=== PATIENT | female | born 1940 | race Caucasian/White ===

== ENCOUNTER 2023-02-15 11:08 | Inpatient (IN) ==
[2023-02-15] MEDS ORDERED: Morphine 2 MG/ML SYRINGE IV PRN (11:56)
[2023-02-15] MEDS ORDERED: Ondansetron 4 mg VIAL 2 MG/ML 2 ml VIAL IV PRN (11:57)
[2023-02-15] MEDS ORDERED: Zosyn per Pharmacy NOTE FOLLOW UP SCH (12:00)
[2023-02-15] MEDS ORDERED: ZOSYN 3.375 GM x ONE DOSE over 30 miuntes IV (12:00)
[2023-02-15] MEDS ORDERED: NS 0.9% 1000 ml BAG 1,000 ML IV SCH (12:00)
[2023-02-15 12:28] LABS: Hematocrit 33.6 % (35-45); Hemoglobin 11.8 g/dL (11.5-14.3); Mean Corpuscular Hemoglobin 34.3 pg (27-33); Mean Corpuscular Hgb Conc 35.2 g/dL (31-36); Mean Corpuscular Volume 97.5 fL (80-97); Platelet Count 246 10^3/uL (150-450); Red Blood Count 3.45 10^6/uL (3.63-4.92); Red Cell Distribution Width 13.6 % (12-17); White Blood Count 6.5 10^3/uL (3.8-11.8)
[2023-02-15 12:34] LABS: INR 1.34 (0.83-1.13)
[2023-02-15 13:06] LABS: Rapid COVID-19 Molecular Undetected (Undetected)
[2023-02-15] MEDS: Acetaminophen IV 1 GM/100ML 1,000 MG/100 ML BAG IV PRN (14:08)
[2023-02-15 14:20] LABS: Creatinine, Serum 0.8 mg/dL (0.51-0.95); Potassium 3.6 mmol/L (3.5-5.0); eGFR CKD-EPI 74.4 (>60)
[2023-02-15] MEDS: NS 0.9% 1000 ml BAG 1,000 ML IV SCH ×2 (15:01→23:56)
[2023-02-15 15:28] LABS: Albumin 3.7 g/dL (3.2-5.2); Albumin/Globulin Ratio 1.6 (1-3); Globulin 2.3 g/dL (2-4); Total Bilirubin 3.3 mg/dL (0.2-1.0)
[2023-02-15] MEDS: ZOSYN 3.375 GM Q8H per EXTENDED INFUSION IV SCH (18:16)
[2023-02-16 00:26] LABS: Urine Appearance Clear; Urine Bilirubin Negative (Negative); Urine Blood Negative (Negative); Urine Color Yellow; Urine Glucose Negative (Negative); Urine Ketones Trace (Negative); Urine Nitrite Negative (Negative); Urine Protein Negative (Negative); Urine Specific Gravity 1.015 (1.002-1.030); Urine Urobilinogen Negative (Negative)
[2023-02-16 00:29] LABS: Urine Bacteria Absent (Absent); Urine Red Blood Cell Trace(0-2/hpf) (Absent); Urine Squamous Epithelial Cell Present (Absent); Urine White Blood Cell 3+(>20/hpf) (Absent)
[2023-02-16] MEDS: ZOSYN 3.375 GM Q8H per EXTENDED INFUSION IV SCH ×3 (01:27→17:47)
[2023-02-16 09:44] LABS: Albumin 3.2 g/dL (3.2-5.2); Albumin/Globulin Ratio 1.5 (1-3); Calcium 8.2 mg/dL (8.6-10.3); Creatinine, Serum 0.84 mg/dL (0.51-0.95); Globulin 2.2 g/dL (2-4); Potassium 3.4 mmol/L (3.5-5.0); Total Bilirubin 1.5 mg/dL (0.2-1.0); Total Protein 5.4 g/dL (6.4-8.9); eGFR CKD-EPI 70.2 (>60)
[2023-02-16] MEDS ORDERED: Buffered Lidocaine 1% SYRIN 1 ml INTRADERM ONE (10:02)
[2023-02-16] MEDS: PROPAFENONE 225 MG PO SCH ×2 (10:25→23:00)
[2023-02-16] MEDS: Cholecalciferol (VIT D3) 1,000 unit TAB PO SCH (10:41)
[2023-02-16] MEDS: NS 0.9% 1000 ml BAG 1,000 ML IV SCH (10:51)
[2023-02-16] MEDS ORDERED: Lactated Ringers 1000 ml BAG 1,000 ML IV SCH (11:00)
[2023-02-16] MEDS: Acetaminophen IV 1 GM/100ML 1,000 MG/100 ML BAG IV PRN (12:20)
[2023-02-16] MEDS ORDERED: Ondansetron 4 mg VIAL 2 MG/ML 2 ml VIAL IV PRN (15:04)
[2023-02-16] MEDS ORDERED: Prochlorperazine 5 mg/ml 2 ml VIAL (10 mg) IV PRN (15:04)
[2023-02-16] MEDS ORDERED: HYDROmorphone 1 MG/1 ML SYRINGE IV PRN (15:04)
[2023-02-16] MEDS ORDERED: Naloxone 0.4 mg VIAL 0.4 mg/ml 1 ml VIAL IV PRN (15:04)
[2023-02-16] MEDS ORDERED: Bupivacaine 0.25% SDV 30 ML ONE (19:05)
[2023-02-16] MEDS ORDERED: fentaNYL 100 mcg/2 ml 50 MCG/ML VIAL ONE (19:07)
[2023-02-16] MEDS ORDERED: Rocuronium 50 mg VIAL 10 mg/ml 5 ml VIAL (50 mg) ONE (19:08)
[2023-02-16] MEDS ORDERED: Ondansetron 4 mg VIAL 2 MG/ML 2 ml VIAL ONE ×2 (19:44→21:43)
[2023-02-16] MEDS ORDERED: Dexamethasone IV 4 MG/ML VIAL 1 ml VIAL ONE (19:44)
[2023-02-16] MEDS ORDERED: Prochlorperazine 5 mg/ml 2 ml VIAL (10 mg) ONE (21:32)
[2023-02-16] MEDS ORDERED: Acetaminophen IV 1 GM/100ML 1,000 MG/100 ML BAG IV ONE (21:49)
[2023-02-16] MEDS: Heparin 5000 UNITS/ML 1 mL VIAL SUBCUT SCH (23:01)
[2023-02-17] MEDS: Acetaminophen IV 1 GM/100ML 1,000 MG/100 ML BAG IV PRN (01:07)
[2023-02-17] MEDS: NS 0.9% 1000 ml BAG 1,000 ML IV SCH (02:35)
[2023-02-17] MEDS: ZOSYN 3.375 GM Q8H per EXTENDED INFUSION IV SCH ×2 (02:42→09:20)
[2023-02-17] MEDS: Heparin 5000 UNITS/ML 1 mL VIAL SUBCUT SCH (06:34)
[2023-02-17 07:09] LABS: Hematocrit 31.6 % (35-45); Mean Corpuscular Hemoglobin 34.1 pg (27-33); Mean Corpuscular Hgb Conc 34.8 g/dL (31-36); Mean Corpuscular Volume 98.1 fL (80-97); Mean Platelet Volume 7.2 fL (7.5-11.2); Platelet Count 223 10^3/uL (150-450); Red Blood Count 3.22 10^6/uL (3.63-4.92); Red Cell Distribution Width 13.8 % (12-17); White Blood Count 11.5 10^3/uL (3.8-11.8)
[2023-02-17 07:28] LABS: Creatinine, Serum 0.9 mg/dL (0.51-0.95); eGFR CKD-EPI 64.6 (>60)
[2023-02-17 09:18] VITALS: BP 109/65
[2023-02-17] MEDS: Cholecalciferol (VIT D3) 1,000 unit TAB PO SCH (09:19)
[2023-02-17] MEDS: PROPAFENONE 225 MG PO SCH (09:20)
[2023-02-17 09:35] LABS: Albumin 3.3 g/dL (3.2-5.2); Albumin/Globulin Ratio 1.8 (1-3); Direct Bilirubin 0.3 mg/dL (0.03-0.18); Globulin 1.8 g/dL (2-4); Indirect Bilirubin 0.4 mg/dL (0.3-1.0); Total Bilirubin 0.7 mg/dL (0.2-1.0); Total Protein 5.1 g/dL (6.4-8.9)
== END 2023-02-17 12:30 | disposition home or self-care (01) | DRG 419 ==
LOC: SSU 11:22
PROVIDERS: ADMIT Surgery; ATTEND Surgery